=== PATIENT | male | born 1985 | race Caucasian/White ===

== ENCOUNTER 2021-01-19 19:16 | Emergency (ER) | payer OTHER ==
[2021-01-19] MEDS ORDERED: AUGMENTIN 875-1 EACH PO (21:28)
== END 2021-01-19 21:45 | disposition home or self-care (01) ==
LOC: FER 19:16
DX: L02.215 Cutaneous abscess of perineum (principal)
CPT/HCPCS: 99282

== ENCOUNTER 2021-06-27 16:42 | Emergency (ER) | payer OTHER ==
[~2021-06-27 16:42] MED LIST: AUGMENTIN 875-1 EACH PO
[2021-06-27 19:15] LABS: BASOPHIL 0.3 % (0-2); EOSINOPHIL 2.4 % (0-5); HCT 44.2 % (42.0-52.0); HGB 14.8 g/dl (13.2-18.0); LYMPHOCYTE 20.4 % (15-48); MCH 29.5 pg (25.0-31.0); MCHC 33.5 g/dL (32.0-36.0); MCV 88.2 fL (78.0-100.0); MPV 10.3 fL (6.0-9.5); NEUTROPHIL 64.5 % (41-80); NRBC 0; PLT 219 K/uL (150-400); RBC 5.01 M/uL (4.70-6.00); RDW 13.3 % (11.5-14.0); WBC 7.8 K/uL (4.0-10.5)
[2021-06-27 19:37] LABS: ALBUMIN 3.8 g/dL (3.4-5.0); BILIRUBIN - TOTAL 0.2 mg/dL (0.2-1.0); GLOBULIN (CALCULATION) 3.6 g/dL; POTASSIUM 3.8 mmol/L (3.5-5.1); TOTAL PROTEIN 7.4 g/dL (6.4-8.2)
[2021-06-27 19:38] LABS: LACTIC ACID 0.9 mmol/L (0.4-1.9)
[2021-06-27] MEDS ORDERED: AUGMENTIN 875-1 EACH PO (20:39)
[2021-06-27] MEDS ORDERED: BACTRIM DS TAB1 EACH PO (20:39)
[2021-06-27] MEDS ORDERED: PERCOCET 5-3251 EACH PO (21:22)
[2021-06-27] MEDS ORDERED: NORCO 5-325 TA1 EACH PO (21:24)
== END 2021-06-27 21:41 | disposition home or self-care (01) ==
LOC: FER 16:42
PROVIDERS: Internal Medicine
DX: L03.213 Periorbital cellulitis (principal); F17.210 Nicotine dependence, cigarettes, uncomplicated; Z23 Encounter for immunization
CPT/HCPCS: 36415; 70487; 80053; 83605; 85025; 87040; 90471; 90715; J1170; J7120; Q9967